=== PATIENT | female | born 1995 | race Caucasian/White ===

== ENCOUNTER 2020-01-24 09:39 | Inpatient (IN) | payer MEDICAID ==
[~2020-01-24] VITALS: Ht 185.4 cm; Wt 68.5 kg
[2020-01-24] MEDS ORDERED: ZOLPIDEM TARTRATE 10 MG TABLET PO PRN (13:00)
[2020-01-24] MEDS ORDERED: TUBERCULIN, PURIFIED PROTEIN DERIVATIVE 5 TU/0.1 ML SYRINGE ID ONE (13:00)
[2020-01-24] MEDS ORDERED: HALOPERIDOL 5 MG TABLET PO PRN (13:00)
[2020-01-24 13:50] VITALS: BP 134/55
[2020-01-24 14:31] VITALS: BP 119/74
[2020-01-24 16:25] VITALS: BP 124/74
[2020-01-24] MEDS ORDERED: PETROLATUM,WHITE 28 GM JELLY TP PRN (16:45)
[2020-01-24] MEDS ORDERED: DOCUSATE SODIUM 100 MG CAPSULE PO PRN (16:45)
[2020-01-24] MEDS ORDERED: ACETAMINOPHEN 325 MG TABLET PO PRN (16:45)
[2020-01-24] MEDS ORDERED: NICOTINE 14 MG/24 HOUR PATCH TD PRN (16:45)
[2020-01-24] MEDS ORDERED: MAG HYDROX/AL HYDROX/SIMETH ES 30 ML SUSPENSION UDCUP PO PRN (16:45)
[2020-01-24] MEDS ORDERED: LOPERAMIDE HCL 2 MG CAPSULE PO PRN (16:45)
[2020-01-24] MEDS ORDERED: GuaiFENesin/D-METHORPHAN [SUGAR-FREE] 200-20MG/10 ML SYRUP UDCUP PO PRN (16:45)
[2020-01-24] MEDS ORDERED: ALBUTEROL SULFATE HFA 90 MCG/PUFF 8 GM INHALER IH PRN (16:45)
[2020-01-24] MEDS ORDERED: ONDANSETRON HCL 4 MG TABLET PO PRN (16:45)
[2020-01-24] MEDS ORDERED: CloNIDine HCL 0.1 MG TABLET PO PRN (16:45)
[2020-01-24] MEDS ORDERED: MAGNESIUM HYDROXIDE SUSPENSION 30 ML UDCUP PO PRN (16:45)
[2020-01-24] MEDS ORDERED: IBUPROFEN 400 MG TABLET PO PRN (16:45)
[2020-01-25] MEDS: LORazepam 2 MG TABLET PO PRN ×3 (04:50→17:25)
[2020-01-25 08:07] LABS: BASOPHILS % (AUTO) 0.9 % (0.0-2.0); EOSINOPHILS % (AUTO) 3.6 % (1.0-6.0); HEMATOCRIT 39.1 % (36-46); HEMOGLOBIN 13.1 g/dL (12.0-16.0); LYMPHOCYTES # (AUTO) 1.6 K/uL (1.0-4.8); LYMPHOCYTES % (AUTO) 38.2 % (22.0-44.0); MEAN CORPUSCULAR HEMOGLOBIN 30.4 pg (26.0-34.0); MEAN CORPUSCULAR HGB CONC 33.6 G/dL (31.0-37.0); MEAN CORPUSCULAR VOLUME 91 fL (80-100); MONOCYTES # (AUTO) 0.2 K/uL (0.1-1.0); MONOCYTES % (AUTO) 5.7 % (2.0-9.0); NEUTROPHILS # (AUTO) 2.2 K/uL (1.8-7.7); NEUTROPHILS % (AUTO) 51.6 % (40.0-70.0); PLATELET COUNT (AUTO) 273 K/uL (150-450); RED BLOOD CELL COUNT(AUTO) 4.32 MIL/uL (4.00-5.20); RED CELL DISTRIBUTION WIDTH 12.9 % (11.5-14.5)
[2020-01-25 08:31] LABS: ALANINE AMINOTRANSFERASE 23 U/L (12-78); ALBUMIN 4.3 g/dL (3.4-5.0); ALKALINE PHOSPHATASE 41 U/L (46-116); ANION GAP 11 mmol/L (8-16); ASPARTATE AMINOTRANSFERASE 13 U/L (15-37); BILIRUBIN,TOTAL 0.6 mg/dL (0.1-1.0); CARBON DIOXIDE 24 mmol/L (22-29); CHLORIDE 106 mmol/L (98-107); CHOL/HDL RATIO 3.1 (3.9-5.7); CHOLESTEROL 136 mg/dL (131-200); GLOMERULAR FILTR. RATE CALC > 60 mL/min (>60); GLUCOSE,RANDOM 81 mg/dL (70-110); HCG,QUANTITATIVE < 1 mIU/mL (0-6); HDL CHOLESTEROL 44 mg/dL (40-60); LDL CHOL (CALC.) 83 mg/dL (0-130); POTASSIUM 3.9 mmol/L (3.5-5.1); SODIUM SERUM 141 mmol/L (136-145); TOTAL PROTEIN, SERUM 7.2 g/dL (6.4-8.2); TRIGLYCERIDES 46 mg/dL (15-150); UREA NITROGEN, BLOOD 15 mg/dL (7-18)
[2020-01-25 08:35] VITALS: BP 119/77
[2020-01-25 08:53] LABS: HEMOGLOBIN A1C 4.7 % (3.8-5.6)
[2020-01-25 10:42] LABS: THYROID STIMULATING HORMONE 0.57 uIU/mL (0.36-3.74)
[2020-01-25] MEDS ORDERED: ALBUTEROL SULFATE HFA 90 MCG/PUFF 8 GM INHALER IH PRN (11:30)
[2020-01-25] MEDS ORDERED: ACETAMINOPHEN 325 MG TABLET PO PRN (11:30)
[2020-01-25] MEDS ORDERED: NICOTINE 14 MG/24 HOUR PATCH TD PRN (11:30)
[2020-01-25] MEDS ORDERED: DOCUSATE SODIUM 100 MG CAPSULE PO PRN (11:30)
[2020-01-25] MEDS ORDERED: GuaiFENesin/D-METHORPHAN [SUGAR-FREE] 200-20MG/10 ML SYRUP UDCUP PO PRN (11:30)
[2020-01-25] MEDS ORDERED: MAG HYDROX/AL HYDROX/SIMETH ES 30 ML SUSPENSION UDCUP PO PRN (11:30)
[2020-01-25] MEDS ORDERED: LOPERAMIDE HCL 2 MG CAPSULE PO PRN (11:30)
[2020-01-25] MEDS ORDERED: ONDANSETRON HCL 4 MG TABLET PO PRN (11:30)
[2020-01-25] MEDS ORDERED: MAGNESIUM HYDROXIDE SUSPENSION 30 ML UDCUP PO PRN (11:30)
[2020-01-25] MEDS ORDERED: PETROLATUM,WHITE 28 GM JELLY TP PRN (11:30)
[2020-01-25] MEDS ORDERED: CloNIDine HCL 0.1 MG TABLET PO PRN (11:30)
[2020-01-25] MEDS ORDERED: IBUPROFEN 400 MG TABLET PO PRN (11:30)
[2020-01-25] MEDS: OLANZapine 5 MG TABLET PO SCH ×2 (12:49→17:03)
[2020-01-25] MEDS: GABAPENTIN 300 MG CAPSULE PO SCH ×2 (12:50→17:03)
[2020-01-26 04:32] VITALS: BP 100/66
[2020-01-26 08:29] VITALS: BP 125/81
[2020-01-26] MEDS ORDERED: LORazepam 2 MG/ML VIAL IM ONE (08:45)
[2020-01-26] MEDS ORDERED: DiphenhydrAMINE HCL 50 MG/ML VIAL IM ONE (08:45)
[2020-01-26] MEDS ORDERED: HALOPERIDOL LACTATE 5 MG/ML VIAL IM ONE (08:45)
[2020-01-26] MEDS ORDERED: HALOPERIDOL LACTATE 5 MG/ML VIAL ONE (08:45)
[2020-01-26] MEDS ORDERED: DiphenhydrAMINE HCL 50 MG/ML VIAL ONE (08:46)
[2020-01-26] MEDS: GABAPENTIN 300 MG CAPSULE PO SCH ×2 (09:01→16:46)
[2020-01-26] MEDS: OLANZapine 5 MG TABLET PO SCH ×2 (09:01→16:46)
[2020-01-26 16:21] VITALS: BP 114/64
[2020-01-27 01:55] VITALS: BP 123/68
[2020-01-27 08:34] VITALS: BP 109/58
[2020-01-27] MEDS: OLANZapine 5 MG TABLET PO SCH ×2 (09:35→17:44)
[2020-01-27] MEDS: GABAPENTIN 300 MG CAPSULE PO SCH ×2 (09:35→17:44)
[2020-01-27] MEDS: LORazepam 2 MG TABLET PO PRN ×2 (09:35→17:44)
[2020-01-27 17:05] VITALS: BP 111/57
[2020-01-28 04:05] VITALS: BP 110/62
[2020-01-28] MEDS: OLANZapine 5 MG TABLET PO SCH ×2 (08:19→16:39)
[2020-01-28] MEDS: GABAPENTIN 300 MG CAPSULE PO SCH ×2 (08:19→16:39)
[2020-01-28 08:54] VITALS: BP 110/71
[2020-01-28] MEDS: LORazepam 2 MG TABLET PO PRN ×2 (10:19→16:58)
[2020-01-28 16:33] VITALS: BP 117/62
[2020-01-29 04:44] VITALS: BP 115/63
[2020-01-29 08:16] VITALS: BP 119/67
[2020-01-29] MEDS: LORazepam 2 MG TABLET PO PRN ×2 (08:32→14:33)
[2020-01-29] MEDS: OLANZapine 5 MG TABLET PO SCH ×2 (08:33→16:44)
[2020-01-29] MEDS: GABAPENTIN 300 MG CAPSULE PO SCH ×2 (08:33→16:44)
[2020-01-29] MEDS: BuPROPion HCL XL 150 MG ER TABLET PO SCH (11:21)
[2020-01-29 16:49] VITALS: BP 117/78
[2020-01-30 03:51] VITALS: BP 116/98
[2020-01-30 08:26] VITALS: BP 130/78
[2020-01-30] MEDS: BuPROPion HCL XL 150 MG ER TABLET PO SCH (08:39)
[2020-01-30] MEDS: OLANZapine 5 MG TABLET PO SCH (08:39)
[2020-01-30] MEDS: LORazepam 2 MG TABLET PO PRN (08:40)
[2020-01-30] MEDS: GABAPENTIN 300 MG CAPSULE PO SCH ×2 (08:40→10:35)
[2020-01-30] MEDS ORDERED: BUPR-93 PO (10:43)
[2020-01-30] MEDS ORDERED: OLAN5TAB2 PO (10:43)
[2020-01-30] MEDS ORDERED: GABA-1181 PO (10:43)
== END 2020-01-30 14:10 | disposition home or self-care (01) | DRG 753 ==
LOC: B3A 13:46
PROVIDERS: ADMIT Psychiatry & Neurology Psychiatry; ATTEND Psychiatry & Neurology Psychiatry
DX: F31.2 Bipolar disorder, current episode manic severe with psychotic features (principal); D72.819 Decreased white blood cell count, unspecified; F10.10 Alcohol abuse, uncomplicated; F90.9 Attention-deficit hyperactivity disorder, unspecified type; Z87.891 Personal history of nicotine dependence
CPT/HCPCS: 83036; 84443; J1200; J1630; J2060

== ENCOUNTER 2022-12-14 15:08 | Emergency (ER) | payer MEDICAID ==
[~2022-12-14] VITALS: Ht 154.9 cm; Wt 68.2 kg
[~2022-12-14 15:08] MED LIST: BUPR-50 PO; GABA-1181 PO; OLAN5TAB52 PO
[2022-12-14 17:00] LABS: BASOPHILS % (AUTO) 0.8 % (0.0-2.0); EOSINOPHILS % (AUTO) 1.8 % (1.0-6.0); HEMOGLOBIN 12.6 g/dL (12.0-16.0); LYMPHOCYTES # (AUTO) 1.6 K/uL (1.0-4.8); LYMPHOCYTES % (AUTO) 27.9 % (22.0-44.0); MEAN CORPUSCULAR HEMOGLOBIN 29.7 pg (26.0-34.0); MEAN CORPUSCULAR HGB CONC 33.2 G/dL (31.0-37.0); MEAN CORPUSCULAR VOLUME 89 fL (80-100); MONOCYTES # (AUTO) 0.4 K/uL (0.1-1.0); MONOCYTES % (AUTO) 6.5 % (2.0-9.0); NEUTROPHILS # (AUTO) 3.5 K/uL (1.8-7.7); PLATELET COUNT (AUTO) 329 K/uL (150-450); RED BLOOD CELL COUNT(AUTO) 4.25 MIL/uL (4.00-5.20); RED CELL DISTRIBUTION WIDTH 13.5 % (11.5-14.5)
[2022-12-14 17:08] LABS: ANION GAP 7 mmol/L (8-16); CARBON DIOXIDE 30 mmol/L (22-29); CHLORIDE 105 mmol/L (98-107); CREATININE 0.92 mg/dL (0.60-1.30); GLOMERULAR FILTR. RATE CALC > 60 mL/min (>60); GLUCOSE,RANDOM 66 mg/dL (70-110); POTASSIUM 3.5 mmol/L (3.5-5.1); SODIUM SERUM 142 mmol/L (136-145); UREA NITROGEN, BLOOD 9 mg/dL (7-18)
[2022-12-14 17:16] LABS: ALANINE AMINOTRANSFERASE 23 U/L (12-78); ALBUMIN 3.9 g/dL (3.4-5.0); ALKALINE PHOSPHATASE 46 U/L (46-116); ASPARTATE AMINOTRANSFERASE 22 U/L (15-37); BILIRUBIN,TOTAL 0.3 mg/dL (0.1-1.0); TOTAL PROTEIN, SERUM 6.7 g/dL (6.4-8.2)
[2022-12-14] MEDS ORDERED: LORazepam 1 MG TABLET PO ONE (17:30)
[2022-12-14] MEDS ORDERED: LISD30CA PO (17:30)
[2022-12-14 19:12] VITALS: BP 118/69
[2022-12-14 19:39] LABS: AMPHET/METH SCREEN,URINE POSITIVE (NEGATIVE); BARBITURATE SCREEN, URINE NEGATIVE (NEGATIVE); BENZODIAZEPINES SCREEN,URINE NEGATIVE (NEGATIVE); CANNABINOID SCREEN,URINE POSITIVE (NEGATIVE); COCAINE SCREEN,URINE NEGATIVE (NEGATIVE); METHADONE SCREEN, URINE NEGATIVE (NEGATIVE); OPIATE SCREEN,URINE NEGATIVE (NEGATIVE); PHENCYCLIDINE SCREEN,URINE NEGATIVE (NEGATIVE)
== END 2022-12-14 19:40 | disposition home or self-care (01) ==
LOC: EMS 15:17
DX: F41.9 Anxiety disorder, unspecified (principal); F31.9 Bipolar disorder, unspecified; F90.9 Attention-deficit hyperactivity disorder, unspecified type; F15.90 Other stimulant use, unspecified, uncomplicated
CPT/HCPCS: 99283; 80053; 85025; 36415; 80307 ×2; G0480